=== PATIENT | female | born 1970 | race Caucasian/White ===

== ENCOUNTER 2022-10-03 15:56 | Emergency (ER) | payer MEDICAID, OTHER ==
[~2022-10-03] VITALS: Ht 157.5 cm; Wt 76.0 kg
[~2022-10-03 15:56] MED LIST: HYDR-3972 PO; NO HOME MEDS
[2022-10-03] MEDS ORDERED: ondansetron/PF 4mg/2ml inj IV ONE (16:40)
[2022-10-03] MEDS ORDERED: morphine 4 MG/ML inj SYRINge IV ONE ×2 (16:40→18:30)
[2022-10-03 16:43] LABS: BASOPHILS % (AUTO) 0.2 % (0-1); EOSINOPHILS % (AUTO) 0.1 % (0-6); HEMATOCRIT 41.8 % (35.0-45.0); HEMOGLOBIN 13.1 g/dl (12.0-16.0); LYMPHOCYTES # (AUTO) 2.5 X10'3 (1.1-4.8); LYMPHOCYTES % (AUTO) 21.6 % (21-51); MEAN CORPUSCULAR HEMOGLOBIN 22.9 PG (27.0-31.0); MEAN CORPUSCULAR HGB CONC 31.3 g/dL (33.0-36.5); MEAN CORPUSCULAR VOLUME 73.3 FL (78-98); MEAN PLATELET VOLUME 6.9 FL (7.4-10.4); MONOCYTES # (AUTO) 0.7 X10'3 (0-0.9); MONOCYTES % (AUTO) 6.4 % (2-12); NEUTROPHILS # (AUTO) 8.3 X10'3 (1.8-7.7); NEUTROPHILS % (AUTO) 71.7 % (42-75); PLATELET COUNT 436 X10'3 (140-440); RED CELL DISTRIBUTION WIDTH 16.8 % (11.5-14.5); WHITE BLOOD COUNT 11.6 X10'3 (4.5-11.0)
[2022-10-03 16:54] LABS: ALANINE AMINOTRANSFERASE 40 U/L (12-78); ALBUMIN 4.2 G/DL (3.4-5.0); ALBUMIN/GLOBULIN RATIO 0.9 (1.1-1.5); ALKALINE PHOSPHATASE 92 IU/L (46-116); ANION GAP 10 (8-16); ASPARTATE AMINO TRANSFERASE 26 U/L (10-37); BILIRUBIN,TOTAL 0.4 MG/DL (0.1-1.0); BLOOD UREA NITROGEN 8 MG/DL (7-18); BUN/CREATININE RATIO 10.7 (6.6-38.0); CHLORIDE 103 MMOL/L (99-107); CREATININE 0.75 MG/DL (0.40-0.90); GLUCOSE 111 MG/DL (70-104); LIPASE 111 U/L (73-393); SODIUM 137 MMOL/L (135-145); TOTAL CARBON DIOXIDE 24.2 MMOL/L (24-32); TOTAL PROTEIN 8.7 G/DL (6.4-8.2); eGFR 82 ML/MIN
[2022-10-03 16:58] LABS: CALCIUM 8.9 MG/DL (8.5-10.1)
[2022-10-03 18:14] LABS: COLOR,URINE YELLOW (Yellow); GLUCOSE, URINE NEGATIVE (Neg); KETONES,URINE 15 mg/dl (Neg); LEUKOCYTE ESTERASE ,URINE NEGATIVE (Neg); NITRITES, URINE NEGATIVE (Neg); OCCULT BLOOD,URINE LARGE (Neg); PROTEIN,URINE NEGATIVE (Neg); UROBILINOGEN,URINE 0.2 E.U/dL (0.2-1.0)
[2022-10-03 18:16] LABS: URINE HCG NEGATIVE (NEG)
[2022-10-03 18:20] LABS: UA COLLECTION TYPE NON-SPECIFIED
[2022-10-03 18:21] LABS: BACTERIA,URINE FEW /HPF (Neg); CLARITY,URINE SLIGHTLY CLOUDY (Clear); MUCUS STRANDS FEW /LPF (Neg); SQUAMOUS EPITHELIAL CELL,UR MODERATE /LPF (FEW); WBC,URINE 0-4 /HPF (0-4)
[2022-10-03] MEDS ORDERED: HYDR-3965 PO (18:23)
[2022-10-03] MEDS ORDERED: ONDA4TAB12 PO (18:23)
[2022-10-03 18:51] VITALS: BP 159/91
== END 2022-10-03 18:54 | disposition home or self-care (01) ==
LOC: ER 15:56
DX: K80.80 Other cholelithiasis without obstruction (principal); R10.9 Unspecified abdominal pain; N20.0 Calculus of kidney; Z79.899 Other long term (current) drug therapy
CPT/HCPCS: 36415; 74176; 80053; 81001; 81025; 83690; 85025; 96374; 96375; 96376; 99285; J2270; J2405

== ENCOUNTER 2022-12-22 06:48 | Inpatient (IN) | payer BC ==
[2022-12-15 15:14] LABS: BASOPHILS % (AUTO) 0.6 % (0-1); EOSINOPHILS # (AUTO) 0.2 X10'3 (0-0.9); LYMPHOCYTES # (AUTO) 2.6 X10'3 (1.1-4.8); LYMPHOCYTES % (AUTO) 37.1 % (21-51); MEAN CORPUSCULAR HEMOGLOBIN 23.1 PG (27.0-31.0); MEAN CORPUSCULAR HGB CONC 31.9 g/dL (33.0-36.5); MEAN CORPUSCULAR VOLUME 72.4 FL (78-98); MONOCYTES # (AUTO) 0.6 X10'3 (0-0.9); MONOCYTES % (AUTO) 8.8 % (2-12); NEUTROPHILS # (AUTO) 3.5 X10'3 (1.8-7.7); NEUTROPHILS % (AUTO) 50.5 % (42-75); PRE OP HEMATOCRIT 37.4 % (35.0-45.0); PRE OP HEMOGLOBIN 11.9 g/dL (12.0-16.0); PRE OP PLATELET COUNT 328 X10'3 (140-440); RED BLOOD COUNT 5.16 X10'6 (4.20-5.60); RED CELL DISTRIBUTION WIDTH 17.2 % (11.5-14.5)
[2022-12-15 15:17] LABS: PRE OP PROTIME 10.5 SECONDS (9.0-12.0)
[2022-12-15 15:22] LABS: ALBUMIN 3.5 G/DL (3.4-5.0); ALBUMIN/GLOBULIN RATIO 0.8 (1.1-1.5); ALKALINE PHOSPHATASE 93 IU/L (46-116); BLOOD UREA NITROGEN 10 MG/DL (7-18); BUN/CREATININE RATIO 14.1 (10.0-20.0); CHLORIDE 104 MMOL/L (99-107); CREATININE 0.71 MG/DL (0.40-0.90); PRE OP ALT 27 U/L (30-65); PRE OP ANION GAP 8 (8-16); PRE OP AST 18 U/L (10-37); PRE OP BILIRUB, TOTAL 0.2 MG/DL (0.0-1.0); PRE OP GLUCOSE 100 MG/DL (70-104); PRE OP POTASSIUM 3.9 MMOL/L (3.4-5.1); PRE OP SODIUM 138 MMOL/L (135-145); TOTAL CARBON DIOXIDE 25.6 MMOL/L (24-32); TOTAL PROTEIN 7.9 G/DL (6.4-8.2); eGFR 87 ML/MIN
[2022-12-22] VITALS (38 sets, daily range): BP systolic 108–138; BP diastolic 69–87
[~2022-12-22] VITALS: Ht 157.5 cm; Wt 78.6 kg
[~2022-12-22 06:48] MED LIST changes: +DIPH25TA2 PO; -HYDR-3972 PO; +INDOCYANINE GREEN 25 MG/10 ML VIAL IV ONE; -NO HOME MEDS; +SUPER C PO; +ceFOXitin 2GM-NS 100mL ADDvant 100 ML IV ONE; +famotidine 20mg tablet PO ONE; +ringers solution, lacted 1,000 ML IV SCH
[2022-12-22] MEDS ORDERED: BUPIVAcaine/PF 2.5 mg/ml (0.25%) 30ml vial ONE (06:58)
[2022-12-22] MEDS ORDERED: iohexol 300mg/ml 100ml inj. ONE (07:59)
[2022-12-22 08:26] LABS: COLOR,URINE YELLOW (Yellow); GLUCOSE, URINE NEGATIVE (Neg); KETONES,URINE NEGATIVE (Neg); LEUKOCYTE ESTERASE ,URINE NEGATIVE (Neg); NITRITES, URINE NEGATIVE (Neg); OCCULT BLOOD,URINE LARGE (Neg); PROTEIN,URINE NEGATIVE (Neg); UROBILINOGEN,URINE 0.2 E.U/dL (0.2-1.0)
[2022-12-22 08:35] LABS: CLARITY,URINE SLIGHTLY CLOUDY (Clear); UA COLLECTION TYPE CLN CATCH MIDSTREAM
[2022-12-22 08:44] LABS: WBC,URINE 0-4 /HPF (0-4)
[2022-12-22 08:45] LABS: BACTERIA,URINE FEW /HPF (Neg); MUCUS STRANDS FEW /LPF (Neg); SQUAMOUS EPITHELIAL CELL,UR MANY /LPF (FEW)
[2022-12-22] MEDS ORDERED: sevoflurane 250ml liquid IH ONE (09:22)
[2022-12-22] MEDS ORDERED: midazolam 1 mg/ML 2ml injection ONE (09:25)
[2022-12-22] MEDS ORDERED: fentaNYL /PF 50mcg/ml 5ml ampule ONE (09:25)
[2022-12-22] MEDS ORDERED: BUPIVAcaine/PF 2.5 mg/ml (0.25%) 30ml vial IJ ONE (09:55)
[2022-12-22] MEDS ORDERED: BUPIVAcaine/PF 5 mg/ml 10ml ONE (10:56)
[2022-12-22] MEDS ORDERED: BUPIVACAINE liposomal/PF 13.3 MG/ML vial IM ONE (10:56)
[2022-12-22] MEDS ORDERED: LIDOcaine 2% (20mg/ml) 5ml vial ONE (10:59)
[2022-12-22] MEDS ORDERED: propofol inj 20 ML IV ONE (10:59)
[2022-12-22] MEDS ORDERED: rocuronium 10mg/ml inj IV ONE ×2 (10:59→11:00)
[2022-12-22] MEDS ORDERED: ondansetron/PF 4mg/2ml inj ONE (10:59)
[2022-12-22] MEDS ORDERED: dexamethasone sod phosphate 4mg/ml inj. ONE (10:59)
[2022-12-22] MEDS ORDERED: ePHEDrine 50MG/ML INJ. ONE (10:59)
[2022-12-22] MEDS ORDERED: morphine 10mg/ml inj. ONE (11:13)
[2022-12-22] MEDS ORDERED: naloxone 0.4 mg/ml inj IV PRN (11:55)
[2022-12-22] MEDS ORDERED: sugammadex 200mg/2ml injection IV ONE (11:59)
--- NOTE | 2022-12-22 12:14 | NUR ---
Received from OR via , accompanied by Anesthesiologist SHIELA AND OR NURSE and report given by Anesthesiolgist. PT IS DROWSY YET ABLE TO FOLLOW VERBAL COMMANDS. C/O PAIN TO ABDOMEN 03/30; PAIN MED GIVEN. PT HAS A GORMAN.REJI DRAIN TO RT ABDOMEN WITH BRB DRAINING; DRESSING IS CDI. 3 LAP SITES WITH BANDAIDS; CDI. MIDLINE INCISION [place] DRESSING WITH BRB DRAINAGE; MARKED BORDERS. VSS Addendum: 12/22/22 at 1319 by Candelaria Granado RN Amended: Links added.
[2022-12-22] MEDS ORDERED: ondansetron/PF 4mg/2ml inj IV PRN (12:25)
[2022-12-22] MEDS ORDERED: ketorolac trometh. 30mg/ml inj. IV ONE (12:25)
[2022-12-22] MEDS ORDERED: morphine 2 MG/ML inj. syringe IV PRN (12:25)
[2022-12-22] MEDS ORDERED: meperidine/PF 25mg/ml syringe IV PRN ×2 (12:25)
[2022-12-22] MEDS ORDERED: labetalol 20mg/4ml (5mg/ml) syringe IV PRN (12:25)
[2022-12-22] MEDS ORDERED: morphine 4 MG/ML inj SYRINge IV PRN (12:25)
[2022-12-22] MEDS ORDERED: hydrALAZINE 20mg/ml inj. IV PRN (12:25)
[2022-12-22] MEDS ORDERED: acetaminophen 1,000mg/100ml IV 100 ML IV PRN (12:25)
[2022-12-22] MEDS ORDERED: proCHLORperazine 10 MG/2 ml inj IV PRN (12:25)
[2022-12-22] MEDS ORDERED: ringers solution, lacted 1,000 ML IV SCH (12:25)
[2022-12-22] MEDS: meperidine/PF 25mg/ml syringe IV PRN ×2 (12:29→15:27)
--- NOTE | 2022-12-22 16:14 | NUR ---
PATIENT TAKEN TO SURGICAL FLOOR ROOM 356A WITH ALL BELONGINGS AND HOOKED UP TO ALL MONITORS IN ROOM AND REPORT GIVEN TO RN WHO HAS TAKEN OVER PATIENT CARE. Addendum: 12/22/22 at 1656 by Candelaria Granado RN Amended: Links added.
--- NOTE | 2022-12-22 16:20 | NUR ---
Patient in room . I have received report from marcial hoffmanostomy rn and had the opportunity to ask questions and assume patient care.
--- NOTE | 2022-12-22 17:04 | NUR ---
PER PHARMACIST CEFOXITIN AND FLUIDS 20 K IS COMPATIBLE AT THE Y SITE.
--- NOTE | 2022-12-22 17:10 | NUR ---
PHARMACY IS GETTING PTS MEDS READY.
--- NOTE | 2022-12-22 18:46 | NUR ---
Problems reprioritized. Patient report given, questions answered & plan of care reviewed with Pratibha POLO.
[2022-12-22] MEDS: ceFOXitin inj 1,000 MG in normal saline 100ml IV soln 100 ML IV SCH (19:10)
[2022-12-22] MEDS: potassium CL 20mEq in D5-1/2NS 1,000 ML IV SCH ×2 (19:10→19:55)
[2022-12-22] MEDS: HYDROmorphone inj. 0.5 MG/0.5 ML DISP.SYRIN IV PRN (19:31)
[2022-12-22] MEDS: ondansetron/PF 4mg/2ml inj IV PRN (21:27)
[2022-12-23] VITALS (9 sets, daily range): BP systolic 101–137; BP diastolic 62–79
[2022-12-23] MEDS: HYDROmorphone inj. 0.5 MG/0.5 ML DISP.SYRIN IV PRN ×5 (00:25→23:48)
[2022-12-23] MEDS: ceFOXitin inj 1,000 MG in normal saline 100ml IV soln 100 ML IV SCH (02:58)
[2022-12-23] MEDS: potassium CL 20mEq in D5-1/2NS 1,000 ML IV SCH ×3 (03:02→21:35)
[2022-12-23] MEDS: ondansetron/PF 4mg/2ml inj IV PRN (05:24)
--- NOTE | 2022-12-23 06:00 | NUR ---
Patient in room CON 356A. I have received report from Pratibha POLO and had the opportunity to ask questions and assume patient care.
--- NOTE | 2022-12-23 06:33 | NUR ---
Problems reprioritized. Patient report given, questions answered & plan of care reviewed with CHRIST CROFT.
[2022-12-23 06:53] LABS: ALBUMIN 2.8 G/DL (3.4-5.0); ANION GAP 7 (8-16); BLOOD UREA NITROGEN 6 MG/DL (7-18); BUN/CREATININE RATIO 9.8 (10.0-20.0); CALCIUM 7.8 MG/DL (8.5-10.1); CHLORIDE 102 MMOL/L (99-107); CREATININE 0.61 MG/DL (0.40-0.90); GLUCOSE 159 MG/DL (70-104); POTASSIUM 3.8 MMOL/L (3.5-5.1); SODIUM 134 MMOL/L (135-145); TOTAL CARBON DIOXIDE 24.7 MMOL/L (24-32); eGFR > 90 ML/MIN
[2022-12-23 06:56] LABS: BASOPHILS % (AUTO) 0.1 % (0-1); EOSINOPHILS % (AUTO) 0 % (0-6); HEMATOCRIT 32.7 % (35.0-45.0); HEMOGLOBIN 10.5 g/dl (12.0-16.0); LYMPHOCYTES # (AUTO) 1.7 X10'3 (1.1-4.8); MEAN CORPUSCULAR HEMOGLOBIN 23.6 PG (27.0-31.0); MEAN CORPUSCULAR VOLUME 73.7 FL (78-98); MEAN PLATELET VOLUME 6.9 FL (7.4-10.4); MONOCYTES % (AUTO) 7.2 % (2-12); NEUTROPHILS # (AUTO) 11.6 X10'3 (1.8-7.7); NEUTROPHILS % (AUTO) 80.7 % (42-75); PLATELET COUNT 333 X10'3 (140-440); RED BLOOD COUNT 4.43 X10'6 (4.20-5.60); RED CELL DISTRIBUTION WIDTH 17.4 % (11.5-14.5); WHITE BLOOD COUNT 14.3 X10'3 (4.5-11.0)
--- NOTE | 2022-12-23 14:11 | NUR ---
per md consuelo dykes. pulled dykes at 1318pm. tried to walk patient in hallway. patient stated she was dizzy.
[2022-12-23] MEDS: HYDROcodone/acetaminophen 5mg/325mg tablet PO PRN ×2 (16:31→20:31)
[2022-12-24] MEDS: potassium CL 20mEq in D5-1/2NS 1,000 ML IV SCH ×3 (03:55→20:16)
[2022-12-24 05:20] VITALS: BP 125/76
[2022-12-24] MEDS: HYDROcodone/acetaminophen 5mg/325mg tablet PO PRN ×4 (05:23→21:57)
[2022-12-24 06:00] VITALS: BP 124/78
[2022-12-24 06:17] LABS: BASOPHILS % (AUTO) 0.3 % (0-1); EOSINOPHILS % (AUTO) 0.1 % (0-6); HEMATOCRIT 33.2 % (35.0-45.0); HEMOGLOBIN 10.5 g/dl (12.0-16.0); LYMPHOCYTES # (AUTO) 1.9 X10'3 (1.1-4.8); LYMPHOCYTES % (AUTO) 14.4 % (21-51); MEAN CORPUSCULAR HEMOGLOBIN 23.1 PG (27.0-31.0); MEAN CORPUSCULAR HGB CONC 31.6 g/dL (33.0-36.5); MEAN CORPUSCULAR VOLUME 73.1 FL (78-98); MEAN PLATELET VOLUME 6.8 FL (7.4-10.4); MONOCYTES # (AUTO) 0.8 X10'3 (0-0.9); MONOCYTES % (AUTO) 5.9 % (2-12); NEUTROPHILS # (AUTO) 10.5 X10'3 (1.8-7.7); NEUTROPHILS % (AUTO) 79.3 % (42-75); PLATELET COUNT 368 X10'3 (140-440); RED BLOOD COUNT 4.54 X10'6 (4.20-5.60); RED CELL DISTRIBUTION WIDTH 17.6 % (11.5-14.5); WHITE BLOOD COUNT 13.2 X10'3 (4.5-11.0)
[2022-12-24 06:28] LABS: ALBUMIN 2.7 G/DL (3.4-5.0); ANION GAP 8 (8-16); BLOOD UREA NITROGEN 3 MG/DL (7-18); BUN/CREATININE RATIO 5.6 (10.0-20.0); CHLORIDE 106 MMOL/L (99-107); CREATININE 0.54 MG/DL (0.40-0.90); GLUCOSE 142 MG/DL (70-104); POTASSIUM 3.7 MMOL/L (3.5-5.1); SODIUM 137 MMOL/L (135-145); TOTAL CARBON DIOXIDE 23.5 MMOL/L (24-32); eGFR > 90 ML/MIN
--- NOTE | 2022-12-24 06:44 | NUR ---
Problems reprioritized. Patient report given, questions answered & plan of care reviewed with CHRIST Lock and CHRIST Gonzalez.
[2022-12-24 10:00] VITALS: BP 124/78
[2022-12-24] MEDS ORDERED: HYDROcodone/acetaminophen 10/325mg tab PO PRN (13:35)
[2022-12-24] MEDS ORDERED: magnesium hydroxide 30ml (MOM) UD suspension PO ONE (13:35)
[2022-12-24 18:00] VITALS: BP 177/77
--- NOTE | 2022-12-24 18:00 | NUR ---
R/t workload unable to review all orientee's charting directly after admission to electronic chart. Did assess if RN had performed certain tasks before assigning such as entering VS, administering medications, and charting assessments. Orientee did state that she had performed these tasks before and was familiar with them and did not need help. At no point did she communicate that she needed help charting. While reviewing documentation, this primary RN does not agree with any complete charting entered by ADRIANA [email or web address] other than medication administrations which were closely followed and reviewed.
[2022-12-24] MEDS: magnesium hydroxide 30ml (MOM) UD suspension PO SCH (20:15)
[2022-12-24 20:17] VITALS: BP 125/78
[2022-12-24 22:00] VITALS: BP 117/70
[2022-12-25] MEDS: HYDROcodone/acetaminophen 5mg/325mg tablet PO PRN ×4 (03:51→18:55)
[2022-12-25 06:00] VITALS: BP 94/65
--- NOTE | 2022-12-25 06:04 | NUR ---
Gave report to Brenna POLO.
[2022-12-25 06:30] LABS: BASOPHILS % (AUTO) 0.2 % (0-1); EOSINOPHILS # (AUTO) 0.1 X10'3 (0-0.9); EOSINOPHILS % (AUTO) 1.2 % (0-6); HEMATOCRIT 32.4 % (35.0-45.0); HEMOGLOBIN 10.5 g/dl (12.0-16.0); LYMPHOCYTES # (AUTO) 2.9 X10'3 (1.1-4.8); LYMPHOCYTES % (AUTO) 31.3 % (21-51); MEAN CORPUSCULAR HEMOGLOBIN 23.6 PG (27.0-31.0); MEAN CORPUSCULAR HGB CONC 32.5 g/dL (33.0-36.5); MEAN CORPUSCULAR VOLUME 72.6 FL (78-98); MEAN PLATELET VOLUME 6.7 FL (7.4-10.4); MONOCYTES # (AUTO) 0.7 X10'3 (0-0.9); NEUTROPHILS # (AUTO) 5.6 X10'3 (1.8-7.7); NEUTROPHILS % (AUTO) 60.3 % (42-75); PLATELET COUNT 418 X10'3 (140-440); RED BLOOD COUNT 4.46 X10'6 (4.20-5.60); RED CELL DISTRIBUTION WIDTH 17.6 % (11.5-14.5); WHITE BLOOD COUNT 9.4 X10'3 (4.5-11.0)
--- NOTE | 2022-12-25 06:37 | NUR ---
Patient in room CON 356. I have received report from CHRIST Gonzalez and had the opportunity to ask questions and assume patient care.
[2022-12-25 06:44] LABS: ALBUMIN 2.8 G/DL (3.4-5.0); ANION GAP 8 (8-16); BLOOD UREA NITROGEN 4 MG/DL (7-18); CALCIUM 8.5 MG/DL (8.5-10.1); CHLORIDE 105 MMOL/L (99-107); GLUCOSE 112 MG/DL (70-104); POTASSIUM 3.9 MMOL/L (3.5-5.1); SODIUM 138 MMOL/L (135-145); TOTAL CARBON DIOXIDE 25.3 MMOL/L (24-32); eGFR > 90 ML/MIN
[2022-12-25] MEDS: magnesium hydroxide 30ml (MOM) UD suspension PO SCH ×2 (07:27→18:55)
--- NOTE | 2022-12-25 11:20 | NUR ---
REJI drain removed at 1115 per MD order. Patient tolerated well. 20ML of serosanguineous fluid out of drain before removal.
[2022-12-25] MEDS: potassium CL 20mEq in D5-1/2NS 1,000 ML IV SCH (11:47)
[2022-12-25 12:00] VITALS: BP 121/73
[2022-12-25] MEDS: metoclopramide 5 mg/ml inj IV SCH ×2 (14:32→18:55)
--- NOTE | 2022-12-25 18:15 | NUR ---
Problems reprioritized. Patient report given, questions answered & plan of care reviewed with CHRIST Farias.
[2022-12-25] MEDS ORDERED: enoxaparin 40mg/0.4ml syringe SUBCUT SCH (20:00)
[2022-12-25 22:00] VITALS: BP 132/78
[2022-12-26] MEDS: HYDROcodone/acetaminophen 5mg/325mg tablet PO PRN ×3 (00:10→13:19)
[2022-12-26] MEDS: metoclopramide 5 mg/ml inj IV SCH ×3 (02:23→13:48)
[2022-12-26 06:00] VITALS: BP 117/76
--- NOTE | 2022-12-26 06:05 | NUR ---
Problems reprioritized. Patient report given, questions answered & plan of care reviewed with Yulisa WALKER. Addendum: 12/26/22 at 0606 by Dinora Roger RN Amended: Links added.
--- NOTE | 2022-12-26 06:20 | NUR ---
Patient in room CON 356. I have received report from CHRIST Farias and had the opportunity to ask questions and assume patient care.
[2022-12-26 07:25] LABS: ALBUMIN 2.8 G/DL (3.4-5.0); ANION GAP 8 (8-16); BILIRUBIN,TOTAL 0.4 MG/DL (0.1-1.0); BLOOD UREA NITROGEN 5 MG/DL (7-18); BUN/CREATININE RATIO 9.1 (10.0-20.0); CALCIUM 8.4 MG/DL (8.5-10.1); CHLORIDE 104 MMOL/L (99-107); CREATININE 0.55 MG/DL (0.40-0.90); GLUCOSE 112 MG/DL (70-104); POTASSIUM 3.9 MMOL/L (3.5-5.1); SODIUM 138 MMOL/L (135-145); TOTAL CARBON DIOXIDE 26.2 MMOL/L (24-32); TOTAL PROTEIN 7.2 G/DL (6.4-8.2); eGFR > 90 ML/MIN
[2022-12-26 07:26] LABS: ALANINE AMINOTRANSFERASE 44 U/L (12-78); ALBUMIN/GLOBULIN RATIO 0.6 (1.1-1.5); ALKALINE PHOSPHATASE 92 IU/L (46-116); ASPARTATE AMINO TRANSFERASE 22 U/L (10-37)
[2022-12-26 07:33] LABS: BASOPHILS % (AUTO) 0.2 % (0-1); EOSINOPHILS # (AUTO) 0.2 X10'3 (0-0.9); EOSINOPHILS % (AUTO) 1.9 % (0-6); HEMATOCRIT 34.1 % (35.0-45.0); HEMOGLOBIN 10.8 g/dl (12.0-16.0); LYMPHOCYTES # (AUTO) 1.5 X10'3 (1.1-4.8); LYMPHOCYTES % (AUTO) 14.5 % (21-51); MEAN CORPUSCULAR HEMOGLOBIN 23.1 PG (27.0-31.0); MEAN CORPUSCULAR HGB CONC 31.7 g/dL (33.0-36.5); MEAN CORPUSCULAR VOLUME 72.9 FL (78-98); MEAN PLATELET VOLUME 6.8 FL (7.4-10.4); MONOCYTES # (AUTO) 0.6 X10'3 (0-0.9); MONOCYTES % (AUTO) 5.5 % (2-12); NEUTROPHILS # (AUTO) 7.9 X10'3 (1.8-7.7); NEUTROPHILS % (AUTO) 77.9 % (42-75); PLATELET COUNT 489 X10'3 (140-440); RED BLOOD COUNT 4.68 X10'6 (4.20-5.60); RED CELL DISTRIBUTION WIDTH 17.4 % (11.5-14.5); WHITE BLOOD COUNT 10.2 X10'3 (4.5-11.0)
[2022-12-26] MEDS: magnesium hydroxide 30ml (MOM) UD suspension PO SCH (07:50)
[2022-12-26] MEDS: potassium CL 20mEq in D5-1/2NS 1,000 ML IV SCH (09:55)
[2022-12-26 10:00] VITALS: BP 111/63
--- NOTE | 2022-12-26 15:05 | NUR ---
Patient stable and appropriate for discharge. Discharge instructions given to patient and spouse. Pain medications e-scipted to [facility] by Dr. Zhao's office. All questions answered. IV removed, cannula intact. Patient taken to lobby via wheelchair.
== END 2022-12-26 15:00 | disposition home or self-care (01) | DRG 416 ==
LOC: PAS 06:48 → SUR 3N 17:19
PROVIDERS: ADMIT Surgery; ATTEND Surgery
PROC: 0DNW4ZZ Release Peritoneum, Percutaneous Endoscopic Approach (ICD-10-PCS; 2022-12-22)
PROC: 0FJ44ZZ Inspection of Gallbladder, Percutaneous Endoscopic Approach (ICD-10-PCS; 2022-12-22)
PROC: 8E0W0CZ Robotic Assisted Procedure of Trunk Region, Open Approach (ICD-10-PCS; 2022-12-22)
PROC: BW211ZZ Computerized Tomography (CT Scan) of Abdomen and Pelvis using Low Osmolar Contrast (ICD-10-PCS; 2022-12-22)
PROC: 0FT40ZZ Resection of Gallbladder, Open Approach (ICD-10-PCS; principal; 2022-12-22 09:22)
DX: K80.20 Calculus of gallbladder without cholecystitis without obstruction (principal); K66.0 Peritoneal adhesions (postprocedural) (postinfection)
CPT/HCPCS: Z7506; Z7508; 36415; 71046; 74177; 80048; 80053; 81001; 82948; 85025; 85610; 85730; 86885; 86900; 86901; 87081; 93005; A4215; A4615; A4618; A6212; A6449; A7000; C9290; G0378; J0131; J0694; J1100; J1170; J1650; J1885; J2175; J2250; J2274; J2405; J2704; J2765; J3010; J3480; J3490; J7120; Q9967